=== PATIENT | female | born 1940 | race Caucasian/White ===

== ENCOUNTER 2022-10-12 14:44 | Observation (INO) | payer MEDICARE, SELFPAY ==
[2022-10-12] VITALS (34 sets, daily range): BP systolic 99–194; BP diastolic 67–125; PULSE 66–100; RESP 14–23; TEMP 36.8; O2SAT 84–100
--- NOTE | ~2022-10-12 | CT_ITS ---
EXAMINATION: CTA chest abdomen pelvis DATE: 10/12/2022 18:46 INDICATION: L back/chest pain, r/o dissect, N/V/D, difABD pain . TECHNIQUE: Computed tomography (CT) of the chest, abdomen, and pelvis was performed with 100 mL Omnip aque-350 intravenous contrast timed to evaluate the aorta. Automated exposure control and iterative r econstruction technique were employed. The dose-length product was 1119.47 mGy-cm. 3-D volume rendere d images were created on a separate workstation. COMPARISON: 03/09/2004, images only. FINDINGS: Thoracic aorta: Maximum transverse diameter of the ascending aorta is 4.6 cm. Maximum diameter at the diaphragmatic hiatus is 2.7 cm. Lung parenchyma and airways: Senescent change. Bibasilar and dependent atelectasis. Thoracic inlet, axillae and chest wall: No thyroid or soft tissue mass. No axillary lymphadenopathy. Mediastinum: No mass or lymphadenopathy. Large sliding-type hiatal hernia. Heart and pericardium: Cardiomegaly. No pericardial effusion. Coronary artery calcifications: Mild. Pleura: No effusion or mass. Thoracic bones: No acute osseous finding in the chest. ABDOMEN/PELVIS: Liver: Hepatomegaly and steatosis Biliary/Gallbladder: Gallbladder is normal. No bile duct dilation. Pancreas: No mass or duct dilation. Spleen: Normal. Adrenals:No mass. Kidneys: No mass, stone, or hydronephrosis. GI tract: Distal esophageal and gastric wall edema. Diffuse colonic wall edema. No small or large bow el dilation. Diverticulosis without diverticulitis. Mesentery/Peritoneum: No ascites, mass, or free air. Retroperitoneum: No mass. Atherosclerotic abdominal aortic and/or arterial calcifications. No signifi cant stenosis of the major aortic branch vessels. IVC filter. Pelvis: Pelvic organs are within normal limits Soft Tissues: Stable lower abdominal venous collaterals. Abdominopelvic bones: No acute osseous finding in the abdomen/pelvis. IMPRESSION: No CT evidence of aortic dissection. Esophagitis/gastritis. Diffuse colitis which may occur with infe ctious, inflammatory, or ischemic etiologies. Otherwise, no acute finding in the chest, abdomen, or p amelia. Chronic and incidental findings are detailed above. Reviewed, dictated and finalized at location K. ING AND BLENDING SUPERVISOR IMPRESSION: No CT evidence of aortic dissection. Esophagitis/gastritis. Diffuse colitis whi ch may occur with infectious, inflammatory, or ischemic etiologies. Otherwise, no acute finding in the chest, abdomen, or pelvis. Chronic and incidental findi ngs are detailed above.
--- NOTE | 2022-10-12 14:56 | ECG_ITS ---
Measurements Intervals [place] Rate: 79 P: 73 AL: 215 QRS: -6 QRSD: 80 T: 12 QT: 362 QTc: 415 Interpretive Statements SINUS RHYTHM WITH FIRST DEGREE AV BLOCK BORDERLINE T WAVE ABNORMALITY- ANTERIOR LEADS BASELINE ARTIFACT- I, III, AVL, V3 BORDERLINE ECG NO PREVIOUS ECG AVAILABLE FOR COMPARISON Electronically Signed On 10-12-2022 15:27:53 QUALITY ASSURANCE LAB TECHNICIAN by Andi Davila D.O.
[2022-10-12 15:18] LABS: Basophils Percent Auto 0.2 % (0.2-1.2); Hematocrit 46.9 % (37.0-47.0); Hemoglobin 15.2 g/dL (12.0-15.0); Immature Granulocyte Absolute 0.03 K/mm3 (0.00-0.031); Immature Granulocyte Percent A 0.3 % (0-0.5); Lymphocytes Absolute Auto 1.15 K/mm3 (0.9-3.2); Lymphocytes Percent Auto 10.5 % (18.3-44.2); Mean Corpuscular HGB Conc 32.4 g/dl (32-36); Mean Corpuscular Hemoglobin 28.2 pg (26-34); Mean Platelet Volume 10.7 fl (7.4-10.4); Monocytes Absolute Auto 0.2 K/mm3 (0.1-0.6); Monocytes Percent Auto 1.9 % (2.6-8.5); Neutrophils Absolute Auto 9.5 K/mm3 (1.3-6.7); Neutrophils Percent Auto 87.1 % (45.5-73.1); Platelet Count Result 274 k/mm3 (150-375); Red Blood Count 5.39 M/mm3 (4.2-5.4)
[2022-10-12 15:25] LABS: Alanine Aminotransferase 35 U/L (6-35); Albumin Level 5.1 g/dL (3.5-5.1); Alkaline Phosphatase 89 U/L (38-126); Anion Gap 12 mmol/L (8-16); Aspartate Amino Transferase 45 U/L (14-36); Bilirubin,Total 0.6 mg/dL (0.2-1.3); Blood Urea Nitrogen 14 mg/dL (7-17); Calcium 10.4 mg/dL (8.4-10.2); Carbon Dioxide 20 mmol/L (22-30); Chloride 102 mmol/L (98-107); Estimated Glomerular Filt Rate > 60; Glucose 225 mg/dL (65-110); Lipase 72 U/L (23-300); Potassium 4.7 mmol/L (3.4-5.0); Sodium 134 mmol/L (137-145)
--- NOTE | 2022-10-12 18:01 | ED.NAVMDI ---
HPI - Nausea/Vomiting/Diarrhea General Chief complaint: Nausea/Vomiting/Diarrhea <SOILA Watts Last Filed: 10/13/22 02:15> Stated complaint: n/v/d <Marta Teresa PA-C - Last Filed: 10/13/22 02:15> Time Seen by Provider: 10/12/22 17:31 <SOILA Watts Last Filed: 10/13/22 02:15> Source: patient <SOILA Watts Last Filed: 10/13/22 02:15> Mode of arrival: EMS <SOILA Watts Last Filed: 10/13/22 02:15> Limitations: no limitations <SOILA Watts Last Filed: 10/13/22 02:15> History of Present Illness HPI Narrative: Patient is an 82-year-old female who presents the ED via EMS with report nausea, vomiting, diarrhea. Patient reports she developed nausea, vomiting, diarrhea around 5:30 AM this morning. She also reported having diffuse pain in her abdomen at that time. She developed pain in her left upper abdomen/lower chest, wrapping around to her left upper back later in the morning. She does feel somewhat short of breath due to the pain. She has not taken anything for the pain. She still feels nauseous currently. Patient denies any fever, rectal bleeding, cough, cold symptoms. Patient is on Eliquis due to history of blood clots. Denies Hx of CAD. <SOILA Watts Last Filed: 10/13/22 02:15> Related Data Home medications: Home Medications Medication Instructions Recorded Confirmed apixaban 5 mg tablet (Eliquis) 5 mg PO BID 10/13/22 10/13/22 dapagliflozin 10 mg tablet 10 mg PO DAILY 10/13/22 10/13/22 ([facility]) lisinopril 10 mg tablet 10 mg PO DAILY 10/13/22 10/13/22 metformin 500 mg tablet,extended 500 mg PO DAILY 10/13/22 10/13/22 release 24 hr metoprolol succinate 50 mg 50 mg PO DAILY 10/13/22 10/13/22 tablet,extended release 24 hr omeprazole 20 mg capsule,delayed 20 mg PO DAILY 10/13/22 10/13/22 release rosuvastatin 10 mg tablet 10 mg PO DAILY 10/13/22 10/13/22 <Marta Teresa PA-C - Last Filed: 10/13/22 02:15> Allergies/Adverse reactions: Allergies Allergy/AdvReac Type Severity Reaction Status Date / Time Sulfa (Sulfonamide Allergy Severe angioedema Verified 10/13/22 01:33 Antibiotics) tramadol Allergy Nausea and Verified 10/13/22 00:10 Vomiting ciprofloxacin [From Cipro] AdvReac Vomiting Verified 10/13/22 01:36 <Marta Teresa PA-C - Last Filed: 10/13/22 02:15> Review of Systems Review of Systems: CONSTITUTIONAL: Denies fever, chills, or sweats. ENT: Denies rhinorrhea, congestion, sore throat. CARDIOVASCULAR: Denies chest pain. RESPIRATORY: Reports shortness of breath. Denies cough. GASTROINTESTINAL: Reports abdominal pain, nausea, vomiting, and diarrhea. Denies rectal bleeding. GENITOURINARY: Denies dysuria or hematuria. MUSCULOSKELETAL: Reports left lower chest pain, radiating to left upper back. 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
[2022-10-12] MEDS: SODIUM CHLORIDE 0.9% IV 1,000 ML 999 ML IV CONT ×2 (18:02→22:52)
[2022-10-12] MEDS: ONDANSETRON INJ 4 MG/2 ML VIAL IV PUSH ×2 (18:04→21:32)
[2022-10-12 18:38] LABS: INR 1.2; Partial Thromboplastin Time 26.5 SECONDS (22.3-36.8); Prothrombin Time 14.8 Seconds (11.1-14.7)
[2022-10-12 18:54] LABS: Troponin I 0.079 ng/mL (0.000-0.034)
[2022-10-12 19:04] LABS: Influenza A QL RT-PCR Negative (Negative); Influenza B QL RT-PCR Negative (Negative); SARS-CoV-2 RNA PCR Negative
[2022-10-12] MEDS: PANTOPRAZOLE SODIUM IV 40 MG VIAL IV PUSH (19:58)
[2022-10-12 20:20] LABS: Appearance Urine Slightly Cloudy (Clear); Bilirubin Urine Negative (Negative); Blood Urine Negative (Negative); Color Urine Yellow (Yellow); Glucose Urine UA 3+ mg/dL (Negative); Ketones Urine 3+ mg/dL (Negative); Leukocyte Esterase Ur Negative LEU/UL (Negative); Nitrate Urine Negative (Negative); Protein Urine Trace mg/dL (Negative); Urobilinogen Urine 0.2 mg/dL (<2.0); pH Urine 5.5 (5.0-9.0)
[2022-10-12 20:25] LABS: Bacteria Urine Trace /hpf; RBC Urine 0-2 /hpf (0-2); Squamous Epithelial Cell Urine Rare /hpf (Few); WBC Urine 0-3 /hpf
[2022-10-12 20:27] LABS: Add Urine Microscopic? YES
[2022-10-12 20:28] LABS: Lactic Acid Reflex 2.6 mmol/L (0.7-2.0)
--- NOTE | 2022-10-12 20:28 | ECG_ITS ---
Measurements Intervals [place] Rate: 88 P: 14 LA: 229 QRS: -14 QRSD: 80 T: 9 QT: 364 QTc: 442 Interpretive Statements SINUS RHYTHM WITH FIRST DEGREE AV BLOCK BORDERLINE ST-T WAVE ABNORMALITY- ANT/INF LEADS ABNORMAL ECG COMPARED TO ECG 10/12/2022 15:00:53 NO SIGNIFICANT CHANGES Electronically Signed On 10-13-2022 8:59:59 PAPERHANGER ASSISTANT by Andi Davila D.O.
[2022-10-12] MEDS: NITROGLYCERIN SL 0.4 MG TABLET SUBLINGUAL ×2 (20:36→21:03)
[2022-10-12] MEDS: MORPHINE SULFATE (*CRX) 4 MG/ML INJ IV PUSH (21:32)
[2022-10-12 22:12] LABS: Troponin I 0.185 ng/mL (0.000-0.034)
--- NOTE | 2022-10-12 22:47 | PC.NURSE ---
pt is unable to maintain standing position at this time.
[2022-10-12 23:17] LABS: Reflex Lactic Acid Yes or No Add Lactic
[2022-10-12 23:45] LABS: Lactic Acid 1.3 mmol/L (0.7-2.0)
[2022-10-13] VITALS (11 sets, daily range): BP systolic 126–157; BP diastolic 74–83; PULSE 64–97; RESP 14–20; TEMP 36.3–36.9; O2SAT 96–100; BMI 28.8
--- NOTE | 2022-10-13 | ECHO_ITS ---
Patient Info Name: Wade Rodriguez Age: 82 years : 1940 Gender: Female Ht: 66 in Wt: 179 lbs BSA: 1.97 m2 HR: 70 bpm BP: 130 / 83 mmHg Heart Rhythm: Sinus Rhythm Technical Quality: Fair Exam Date: 10/13/2022 11:11 AM Exam Location: [facility] Pulmonary Patient Status: Inpatient Admit Date: 10/12/2022 Staff Ordering Physician: Iain Alvarado MD (sarah/delmer) Metal Gauge Maker: Mary Ellen Mcwilliams RDCS Attending Provider: Erasmo Maldonado MD Referring Physician: Christiano COLLINS; Exam Type: CA echo dop color flow w con Study Info Indications - elevated troponin Complete two-dimensional, color flow and Doppler transthoracic echocardiogram is performed with contrast to opacify the left ventricle and to improve the deliniation of the left ventricle endocardial borders. Contrast/Agitated Saline Contrast/Ag. Saline: Definity Amount: 3.00 ml Administered By: Mary Ellen Mcwilliams RDCS Existing IV Access: Yes IV Access Condition: patent with no signs of infiltration Summary 1. Left ventricular systolic function is normal, estimated at 65-70%. 2. The left ventricular diastolic function is grade I diastolic dysfunction. 3. Right ventricular systolic function is normal. 4. There is moderate aortic valve calcification. 5. There is mild to moderate aortic valve stenosis with a peak velocity of 291.14 cm/s, mean gradient of 16 mmHg, and aortic valve area of 1.37 cm2. 6. There is mild to moderate aortic valve regurgitation. 7. There is mild tricuspid valve regurgitation. 8. 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 Left Ventricle Left ventricular chamber dimension is normal. Left ventricular systolic function is normal, estimated at 65-70%. There is no increased left ventricular wall thickness. The left ventricular diastolic function is grade I diastolic dysfunction. Right Ventricle Right ventricular chamber dimension is normal. Right ventricular systolic function is normal. Left Atria Left atrial chamber dimension is normal. Right Atria Right atrial chamber dimension is normal. Atrial Septum Intact interatrial septum visualized by color flow imaging. Aortic Valve The aortic valve is probable trileaflet. There is no aortic valve sclerosis. There is mild to moderate aortic valve stenosis with a peak velocity of 291.14 cm/s, mean gradient of 16 mmHg, and aortic valve area of 1.37 cm2. There is mild to moderate aortic valve regurgitation. There is moderate aortic valve calcification. Pulmonic Valve The pulmonic valve is not well visualized. Mitral Valve The mitral valve has normal leaflets. There is no mitral valve stenosis. There is trace mitral valve regurgitation. Tricuspid Valve The tricuspid valve leaflets are normal. There is no significant tricuspid valve stenosis. There is mild tricuspid valve regurgitation. Pericardium/Pleural There is no pericardial effusion. Inferior Vena Cava Dilated inferior vena cava with <50% collapse upon inspiration consistent with elevated right atrial pressure. 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 Left Ventricular Outflow Tract Name Value Normal LVOT 2D LVOT D
--- NOTE | 2022-10-13 00:03 | PM.IMHP ---
H&P: HPI History of Present Illness Date/Time: 10/13/22 00:03 Chief Complaint: Nausea, vomiting and diarrhea Narrative: 82-year-old female with past medical history of type 2 diabetes mellitus, GERD, essential hypertension, and prior DVT with IVC filter and chronic anticoagulation with Eliquis who presented to the ER from home with nausea, vomiting and diarrhea. Source of information is patient report and past medical records. Patient is a good historian. The patient reports that she woke up around 05:30 with some abdominal cramping, and bloating. She felt as if she needed to have a bowel movement. Shortly thereafter she began having bowel movements that were initially formed and brown but became watery diarrhea. She had 3-4 loose stools. Around 930 in the morning she began having severe nausea with associated vomiting of clear emesis. She developed cold chills and felt as if she was going to . At that same time she developed some left lower chest pain. She did not take any medications for symptoms that she did not think she could tolerate them. She felt so bad that she called EMS. She received Zofran in route to the hospital. She had improvement in her nausea by time she arrived in the hospital. She was still having some upper abdominal pain until she received 4 mg of morphine in the ER. After morphine administration the patient did briefly become hypoxic but this subsequently resolved. She denies any significant recent travel, exposure to contaminated food or water. She has not had any recent ill contacts. Her ate the same food that she did last evening and has not become ill. She did have some antibiotic therapy 68 weeks ago for UTI. She reports that about a week ago she did have some darker urine and is a unusual odor to her urine but the symptoms resolved after about 3 days. She did not receive antibiotics at that time. She denies any dysuria. She has chronic urinary frequency with both urge and stress urinary incontinence. She wears incontinence pads or panty liners all the time. 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 She denies any palpitations, orthopnea or paroxysmal nocturnal dyspnea. She denies any history of snoring. Her weight is been stable. She denies any hematochezia or melena her last colonoscopy was for 5 years ago. She has a history of diverticulosis without history of diverticulitis. She is fully vaccinated against COVID and received her influenza vaccine within the last 6-8 weeks. She reports that her symptoms have improved significantly since receiving IV fluids and nausea medications. She denies any abdominal pain at this time. She is not having any chest pain. In the ER the patient did have minimally elevated troponins that if slightly increased. She has not had any events on telemetry and repeat EKG was negative. She did have some mild leukocytosis and her total protein, calcium and glucose as well as AST were modestly elevated. She had a CT of the abdomen pelvis which demonstrated gastritis, esophagitis and diffuse colitis with broad differential. The patient does admit to having chronic gastritis but only takes omeprazole on occasion as needed. She denies any recent dysphagia. Review of Systems Review of Systems: 12 systems were reviewed with pertinent positives and negatives per HPI. Except as documented in the HPI, all other systems were reviewed and are negative. 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
[2022-10-13] MEDS: HEIGHT/WEIGHT - PLEASE ENTER XX (00:06)
--- NOTE | 2022-10-13 00:25 | PC.NURSE ---
report called to umesh BENAVIDES RN [id number]
--- NOTE | 2022-10-13 00:52 | ADMGEN ---
This patient, Wade Rodriguez, was admitted to IMU Room 212-01 at 0046. Patient/family oriented to hospital policies and general routines including ID bracelet, bed and alarms, visiting hours, pain management, procedures, bathroom and other care routines, personal items, smoking policy, room service/diet, and visiting hours. Information on how to activate the Rapid Response Team has been discussed. Patient/Family are encouraged to report perceived risks to care and to ask questions if they do not understand what they are told or what they should do.
[2022-10-13 01:09] LABS: Troponin I 0.229 ng/mL (0.000-0.034)
[2022-10-13] MEDS: SODIUM CHLORIDE 0.9% IV 1,000 ML 100 ML IV CONT ×2 (02:12→12:17)
[2022-10-13 05:09] LABS: Alanine Aminotransferase 28 U/L (6-35); Albumin Level 4.2 g/dL (3.5-5.1); Alkaline Phosphatase 59 U/L (38-126); Anion Gap 7 mmol/L (8-16); Aspartate Amino Transferase 33 U/L (14-36); Bilirubin,Total 0.5 mg/dL (0.2-1.3); Blood Urea Nitrogen 11 mg/dL (7-17); Carbon Dioxide 23 mmol/L (22-30); Chloride 104 mmol/L (98-107); Estimated CRCL calculation 57 ml/min; Estimated Glomerular Filt Rate > 60; Glucose 157 mg/dL (65-110); Potassium 4.4 mmol/L (3.4-5.0); Sodium 134 mmol/L (137-145)
[2022-10-13 05:19] LABS: Basophils Percent Auto 0.3 % (0.2-1.2); Eosinophils Percent Auto 0.1 % (0-4.4); Hematocrit 39.8 % (37.0-47.0); Hemoglobin 12.9 g/dL (12.0-15.0); Immature Granulocyte Absolute 0.05 K/mm3 (0.00-0.031); Immature Granulocyte Percent A 0.4 % (0-0.5); Lymphocytes Absolute Auto 2.87 K/mm3 (0.9-3.2); Mean Corpuscular HGB Conc 32.4 g/dl (32-36); Mean Corpuscular Hemoglobin 28.7 pg (26-34); Mean Corpuscular Volume 88.6 fl (80-100); Mean Platelet Volume 10.5 fl (7.4-10.4); Monocytes Absolute Auto 0.9 K/mm3 (0.1-0.6); Monocytes Percent Auto 7.3 % (2.6-8.5); Neutrophils Absolute Auto 8.1 K/mm3 (1.3-6.7); Neutrophils Percent Auto 67.9 % (45.5-73.1); Platelet Count Result 244 k/mm3 (150-375); Red Blood Count 4.49 M/mm3 (4.2-5.4); Red Cell Distribution Width 14.1 % (11.5-14.5)
[2022-10-13 05:24] LABS: Troponin I 0.205 ng/mL (0.000-0.034)
[2022-10-13] MEDS: PANTOPRAZOLE SODIUM IV 40 MG VIAL IV PUSH ×2 (08:57→21:30)
--- NOTE | 2022-10-13 10:38 | PM.CNCAR ---
Assessment and Plan Assessment and plan (1) Colitis: Code(s): K52.9 - Noninfective gastroenteritis and colitis, unspecified Status: Acute (2) Esophagitis with gastritis: Code(s): K29.70 - Gastritis, unspecified, without bleeding; K20.90 - Esophagitis, unspecified without bleeding Status: Acute (3) Nausea vomiting and diarrhea: Code(s): R11.2 - Nausea with vomiting, unspecified; R19.7 - Diarrhea, unspecified Status: Acute (4) Elevated troponin: Code(s): R77.8 - Other specified abnormalities of plasma proteins Status: Acute (5) Hx of deep venous thrombosis: Code(s): Z86.718 - Personal history of other venous thrombosis and embolism Status: Acute Plan Mildly elevated and flat troponins in the setting of GI illness. EKG without ischemic changes. No symptoms consistent with ACS or ischemia. At this time, it does not appear to be ACS. Will obtain TTE. If TTE without significant abnormality, then likely no further cardiac inpatient workup. Patient already has a professor of exercise science at [facility] that she can follow-up with after discharge. History of Present Illness History of Present Illness Consult date/time: 10/13/22 10:38 Requesting physician: Marta Teresa PA-C Consult reason: Other (Elevated troponin) Reason For Visit: Colitis, elevated troponin Narrative: Patient is an 82-year-old female with a history of type 2 diabetes, GERD, essential hypertension, and prior DVT with IVC and chronic anticoagulation with Eliquis who presented to the ER with nausea, vomiting, diarrhea and abdominal pain. We are being consulted for elevated troponin. Patient states that yesterday morning she woke up with sudden severe abdominal pain with nausea, vomiting, and then developed chills. Abdominal pain radiated up to her left chest and to her back. Started having diarrhea as well. Patient reports she felt well the night before without any symptoms. Had eaten pizza the night before, which she usually tolerates pizza without issue. Patient currently denies any chest pain. Has not had chest pain recently. Follows with a professor of exercise science at [facility]. Patient reports that she had a stress test back this Spring, and states that it was normal. Patient states her professor of exercise science told her that she has an enlarged aorta, but it is not big enough for intervention at this time and they have just been monitoring it. Workup here shows mild leukocytosis. Troponins were mildly elevated at 0.079 --> 0.185 --> 0.229 --> 0.205. CTA chest/abdomen/pelvis shows esophagitis/gastritis with diffuse colitis. EKG shows sinus rhythm with nonspecific STTW abnormalities. No change on serial EKGs x 2. Patient states she feels much better now since being admitted. Review of Systems Review of Systems: 12-point ROS obtained. Negative, unless stated in HPI. 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
[2022-10-13 11:59] LABS: Glucose Point of Care 160 mg/dl (65-105)
[2022-10-13] MEDS: PERFLUTREN LIPID MICROSPHERES 1.5 ML VIAL DILUTED TO 10 ML TOTAL VOLUME IV PUSH (12:08)
--- NOTE | 2022-10-13 12:08 | IVDEFINITY ---
Prior to administration of IV Definity the patient was educated on the risks and benefits of the imaging enhancing agent including potential adverse side effects. The patient verbalized understanding. Allergies were verified. No exclusion criteria were identified and at least one of the following inclusion criteria were met: 1) physician request, 2) patient technically difficult to image (per the [place] [employer] Echocardi[employer] guidelines of two or more segments not discernable within the apical view), or 3) questionable left ventricular function. ?
[2022-10-13 16:44] LABS: Glucose Point of Care 192 mg/dl (65-105)
--- NOTE | 2022-10-13 17:15 | PC.NURSE ---
This patient, Wade Rodriguez, was transferred to [ 311] on 10/13/22 at 1715. Personal belongings sent with patient. Report given to [JOSE G Carrero @ [phone] ]. Appropriate documentation sent with patient. Delay in transfer d/t patient receiving dinner tray.
--- NOTE | 2022-10-13 17:28 | PC.NURSE ---
patient transferring to room 311 per bed
[2022-10-13 21:55] LABS: Glucose Point of Care 170 mg/dl (65-105)
[2022-10-14] MEDS: SODIUM CHLORIDE 0.9% IV 1,000 ML 100 ML IV CONT (01:15)
--- NOTE | 2022-10-14 04:52 | PC.NURSE ---
Pt having abdominal cramping. Pt was given Ativan, Turner, and Bentyl throughout the shift. Pt has been resting ever since. Pt participated and contributed in plan of care. Pt has no other complaints or requests at this time. Will continue to monitor pt.
--- NOTE | 2022-10-14 05:21 | PC.NURSE ---
Pt has been resting throughout the shift. Pt has been up to the bathroom a few time up with stand by assist. Pt has participated and contributed in plan of care for the shift. Pt reports no pain and has no requests at this time. Will continue to monitor pt.
[2022-10-14 06:00] VITALS: BP 150/114; PULSE 73; RESP 16; TEMP 37.2; O2SAT 99
[2022-10-14 07:37] LABS: Glucose Point of Care 153 mg/dl (65-105)
[2022-10-14 08:18] VITALS: BP 184/100; PULSE 64; RESP 14; TEMP 36.8; O2SAT 98
[2022-10-14] MEDS: PANTOPRAZOLE SODIUM IV 40 MG VIAL IV PUSH (09:19)
--- NOTE | 2022-10-14 09:33 | PM.DS ---
DS: Admitting Diagnosis Discharge Date 10/14/2022 Admitting Diagnosis Colitis DS: Summary Hospital Course Hospital Course: 82-year-old female with past medical history of type 2 diabetes mellitus, GERD, essential hypertension, and prior DVT with IVC filter and chronic anticoagulation with Eliquis who presented to the ER from home with nausea, vomiting and diarrhea.??In the ER the patient did have minimally elevated troponins.? She has not had any events on telemetry and repeat EKG was negative.? She did have some mild leukocytosis and her total protein, calcium and glucose as well as AST were modestly elevated.? She had a CT of the abdomen pelvis which demonstrated gastritis, esophagitis and diffuse colitis with broad differential.? Patient was started on IV Zosyn for colitis. Once her symptoms improved she was started on clear liquid diet and advanced as tolerated. At this time she is tolerating a regular diet. Cardiology was consulted for minimally elevated troponin. Patient is not having any chest pains. Echo was obtained which was essentially unremarkable. At this time patient is clinically stable and is being discharged home Echo: ?1. Left ventricular systolic function is normal, estimated at 65-70%. ? 2. The left ventricular diastolic function is grade I diastolic dysfunction. ? 3. Right ventricular systolic function is normal. ? 4. There is moderate aortic valve calcification. ? 5. There is mild to moderate aortic valve stenosis with a peak velocity of 291.14 cm/s, mean gradient of 16 mmHg, and aortic valve area of 1.37 cm2. ? 6. There is mild to moderate aortic valve regurgitation. ? 7. There is mild tricuspid valve regurgitation. ? 8. 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 Time Spent with Patient Time attestation: Total time spent providing and/or coordinating discharge services: Exam Const: General: comfortable and no acute distress HENMT: Mouth: Yes moist mucous membranes Eyes: General: appearance normal, both eyes and all related structures Sclera: sclerae normal Neck: Neck: supple Resp: Effort & Inspection: normal respiratory effort Auscultation: clear to auscultation bilaterally Cardio: Rate: regular rate Rhythm: regular rhythm Heart sounds: no murmurs GI: GI Palp: Yes Soft to palpation and No Tenderness to palpation present (GI) Auscultation: normal bowel sounds Skin: General skin exam: normal color Neuro: Speech: normal speech Motor exam (neuro): 5/5 motor strength present throughout Extrem: General: normal to inspection Psych: Mental Status: mental status grossly normal Affect: normal affect DS: Data Data Completed and Pending Labs on day of discharge: Labs from last 24 hours 10/14/22 10/13/22 10/13/22 07:24 21:27 16:40 POC Capillary Glucose 153 H 170 H 192 H 10/13/22 11:56 POC Capillary Glucose 160 H Preliminary micro results at discharge 10/12/22 21:30 Blood Culture - Preliminary Blood 10/12/22 21:30 Blood Culture - Preliminary Blood Discharge Plan Discharge Consulting providers: Marta Teresa ; Evita Raya Discharging Clinician: Erasmo Maldonado Anticipated Discharge Date/Time: 10/14/22 09:30 Patient Disposition: Home, Self-Care Activity: may shower Diet: heart healthy Patient Instructions: Antibiotic Form, Apixaban (By mouth) Stand Alone Forms: General Discharge Information Follow-up/Referrals: PHYSICIAN NOT ON STAFF,NONSTAFF [Primary Care Provider] - Discharge Medications: New amoxicillin-pot clavulanate 875-125 mg tablet 1 tablet PO Q12H Qty: 10 0RF Continued metoprolol succinate 50 mg tablet extended release 24 hr 50 mg PO DAILY lisinopril 10 mg tablet 10 mg PO DAILY omeprazole 20 mg capsule,delayed release(DR/EC) 20 mg PO DAILY metformin 500 mg tablet extended release 24 hr 500 mg PO DAILY rosuvastatin 10 mg tablet 10 mg PO DAILY Rx
[2022-10-14 10:44] VITALS: PULSE 70
[2022-10-14] MEDS: lisinopriL 10 MG TABLET PO (10:44)
[2022-10-14] MEDS: METOPROLOL SUCCINATE EXT REL 50 MG TABCR PO (10:44)
== END 2022-10-14 11:00 | disposition home or self-care (01) ==
LOC: ANHED 23:12 → ANHIMU 23:56 → ANH3MEDSUR 10-13 17:43
PROVIDERS: Emergency Medicine; Physician Assistant; Admitting Provider Internal Medicine; Emergency Provider Emergency Medicine; Visit Provider Hospitalist
DX: K29.70 Gastritis, unspecified, without bleeding (principal); K52.9 Noninfective gastroenteritis and colitis, unspecified; E86.0 Dehydration; I10 Essential (primary) hypertension; E78.5 Hyperlipidemia, unspecified; E11.9 Type 2 diabetes mellitus without complications; K20.90 Esophagitis, unspecified without bleeding; K21.9 Gastro-esophageal reflux disease without esophagitis; K44.9 Diaphragmatic hernia without obstruction or gangrene; K57.30 Diverticulosis of large intestine without perforation or abscess without bleeding; M81.0 Age-related osteoporosis without current pathological fracture; N39.46 Mixed incontinence; R35.0 Frequency of micturition; R77.8 Other specified abnormalities of plasma proteins; Z79.01 Long term (current) use of anticoagulants; Z86.718 Personal history of other venous thrombosis and embolism; Z20.822 Contact with and (suspected) exposure to COVID-19
CPT/HCPCS: 36415; 71275; 74174; 80053; 81001; 82948; 83605; 83690; 84484; 85025; 85610; 85730; 87040; 87636; 93005; 96361; 96365; 96366; 96367; 96375; 96376; 99285; A9270; C8929; C9113; G0378; J0131; J2270; J2405; J2543; J7030; Q9957; Q9967

== ENCOUNTER 2023-10-09 15:22 | Emergency (ER) | payer MEDICARE, SELFPAY ==
[2023-10-09] VITALS (31 sets, daily range): BP systolic 128–233; BP diastolic 66–111; PULSE 61–80; RESP 11–25; TEMP 36.7; O2SAT 87–100
--- NOTE | ~2023-10-09 | XR_ITS ---
EXAMINATION: XR chest 2V Exam Date/Time: 10/09/2023 17:00 DAIRY EQUIPMENT MECHANIC HISTORY: cp/sob Comparison: 03/03/2005. RESULT: Lines, tubes, and devices: None. Lungs and pleura: Senescent change. Cardiomediastinal silhouette: Increased ectasia and dilation of the thoracic aorta. Somewhat irregul ar appearing aortic knob. Cardiomegaly. Prominent pericardial fat pad. Other: No acute osseous or upper abdominal finding. IMPRESSION: Widened mediastinum, with interval changes in the appearance of the thoracic aorta. Please refer to t he report on the concurrent CTA chest abdomen and pelvis for further details. Reviewed, dictated and finalized at location [facility]. Y EQUIPMENT MECHANIC IMPRESSION: Widened mediastinum, with interval changes in the appearance of the thoracic ao rta. Please refer to the report on the concurrent CTA chest abdomen and pelvis for further details.
--- NOTE | ~2023-10-09 | CT_ITS ---
EXAMINATION: CTA chest abdomen pelvis DATE: 10/09/2023 17:11 INDICATION: concern for aortic dissection . TECHNIQUE: Computed tomography (CT) of the chest, abdomen, and pelvis was performed with 100 mL Omnip aque-350 intravenous contrast in the arterial phase. Automated exposure control and iterative reconst ruction technique were employed. The dose-length product was 1547.40 mGy-cm. COMPARISON: 10/12/2022 FINDINGS: CHEST: Thoracic aorta: The ascending thoracic aorta is dilated to 5.2 cm. The posterior arch measures 4.1 cm . The descending thoracic aorta measures 2.6 cm at the diaphragm. Mild arch calcification. Intramural thrombus involving the descending thoracic, arch, and descending thoracic aorta. Thrombus measures u p up to 1 cm in thickness in the descending aorta. Focal areas of thrombus fissuring noted in the liam cending thoracic aorta (axial image [id number]). Small-volume ill-defined stranding about the arch. Lung parenchyma and airways: Senescent changes. Dependent atelectasis.. Thoracic inlet, axillae and chest wall: No thyroid or soft tissue mass. No axillary lymphadenopathy. Mediastinum: No mass or lymphadenopathy. Heart and pericardium: Cardiomegaly. No pericardial effusion. Coronary artery calcifications: Mild. Pleura: No effusion or mass. Thoracic bones: No acute osseous finding in the chest. ABDOMEN/PELVIS: Liver: Normal. Biliary/Gallbladder: Gallbladder is normal. No bile duct dilation. Pancreas: Pancreatic atrophy Spleen: Normal. Adrenals:No mass. Kidneys: No suspicious mass, obstructing stone, or hydronephrosis. GI tract: Moderate hiatal hernia. No small or large bowel dilation. Appendix not confidently visualiz ed. Diverticulosis without diverticulitis. Mesentery/Peritoneum: No ascites, mass, or free air. Retroperitoneum: No mass. IVC filter. Pelvis: Pelvic organs are within normal limits Soft Tissues: Lower abdominal collaterals. Abdominopelvic bones: No acute osseous finding in the abdomen/pelvis. IMPRESSION: Thoracic aortic aneurysm involving the ascending thoracic aorta and arch, measuring up to 5.2 cm, lar evens than the prior study. Findings concerning for current small volume rupture at the posterior arch including ill-defined alyx aortic fluid/inflammation and thrombus fissuring. Extensive intramural thrombus involving the entirety of the thoracic aorta, also new. Results reported telephonically to Dr. Bennett by Dr. Mills at 5:37 PM on 10/09/2023. Reviewed, dictated and finalized at location [facility]. NG CASER IMPRESSION: Thoracic aortic aneurysm involving the ascending thoracic aorta and arch, measu ring up to 5.2 cm, larger than the prior study. Findings concerning for current small volume rupture at the posterior arch incl uding ill-defined periaortic fluid/inflammation and thrombus fissuring. Extensive intramural thrombus involving the entirety of the thoracic aorta, als o new. Results reported telephonically to Dr. Bennett by Dr. Mills at 5:37 PM on 10/09.
--- NOTE | 2023-10-09 15:39 | ECG_ITS ---
Measurements Intervals [place] Rate: 71 P: -30 CA: 171 QRS: -17 QRSD: 81 T: 14 QT: 393 QTc: 429 Interpretive Statements SINUS RHYTHM BORDERLINE ST-T WAVE ABNORMALITY- ANT/INF LEADS BASELINE ARTIFACT- I, III, AVL, AVF, V2-V4 BORDERLINE ECG COMPARED TO ECG 10/12/2022 20:40:30 NO SIGNIFICANT CHANGES Electronically Signed On 10-09-2023 16:54:00 PLODDING OPERATOR by Andi Davila D.O.
--- NOTE | 2023-10-09 16:11 | ED.CHESTPAIN ---
HPI - Chest Pain General Chief Complaint: Chest Pain Stated Complaint: CHEST PAIN Time Seen by Provider: 10/09/23 15:44 Source: patient Limitations: no limitations History of Present Illness HPI narrative: This is an 83 year old female who presents with acute onset chest pain and shortness of breath that started while watching a football game. Patient states the pain is on the right side of her chest and radiating to her back. Sees hogshead opener Dr Akbar/Wiliam at [facility] and PCP is through [facility]. History of DVT in left leg for which she is on Elliquis. States her first DVT occurred when she was 33 years old in the setting of being on control. She frequently experiences right sided facial twitching on examination; states this is chronic since having [place] Palsy. Patient is in significant amount of pain. Not diaphoretic but appears uncomfortable even after application of nitro paste by EMS. Later patient states she is aware she had an aneurysm but has not seen a cardiothoracic surgeon. Family history (father) of thoracic aneurysm. Related Data Home Medications Medication Instructions Recorded Confirmed apixaban 5 mg tablet (Eliquis) 5 mg PO BID 10/13/22 10/13/22 dapagliflozin propanediol 10 mg 10 mg PO DAILY 10/13/22 10/13/22 tablet (Farxiga) lisinopril 10 mg tablet 10 mg PO DAILY 10/13/22 10/13/22 metformin 500 mg tablet,extended 500 mg PO DAILY 10/13/22 10/13/22 release 24 hr metoprolol succinate 50 mg 50 mg PO DAILY 10/13/22 10/13/22 tablet,extended release 24 hr omeprazole 20 mg capsule,delayed 20 mg PO DAILY 10/13/22 10/13/22 release rosuvastatin 10 mg tablet 10 mg PO DAILY 10/13/22 10/13/22 Allergies Allergy/AdvReac Type Severity Reaction Status Date / Time Sulfa (Sulfonamide Allergy Severe angioedema Verified 10/09/23 15:29 Antibiotics) ciprofloxacin [From Cipro] AdvReac Vomiting Verified 10/09/23 15:29 tramadol AdvReac Nausea and Verified 10/09/23 16:27 Vomiting PMFSH Past Medical History Medical History (Updated 10/10/23 @ 00:45 by Betty Bennett MD) Dyslipidemia Essential hypertension Gastritis GERD (gastroesophageal reflux disease) Hiatal hernia Hx of deep venous thrombosis 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 She is a retired [employer] attention. She has 1 daughter. She is a lifelong nonsmoker and does not drink alcohol or use illicit substances. Code status: DNR/DNI per patient request Surrogate decision maker: Smoking status: Never smoker Alcohol intake: never Substance use: never Substance use type: does not use Lack of Transportation: No Lack of Food: Never True Current Housing: I Have Housing Concerned About Future Housing: No Difficulty Paying Gas/Electric Bills: No Difficulty Paying for Meds: No Currently Unemployed: No Education: Bachelor's Degree Difficulty w/ Childcare or Family Care: No Spiritual care concerns: No Exam Narrative: GENERAL: well-nourisehd, in acute distress. Appears uncomfortable HEAD: Normocephalic, atraumatic. EYES: Occasional right eye
[2023-10-09 16:19] LABS: Basophils Percent Auto 0.4 % (0.2-1.2); Eosinophils Absolute Auto 0.4 K/mm3 (0-0.3); Eosinophils Percent Auto 3.8 % (0-4.4); Hematocrit 41.6 % (37.0-47.0); Hemoglobin 13.6 g/dL (12.0-15.0); Immature Granulocyte Absolute 0.03 K/mm3 (0.00-0.031); Immature Granulocyte Percent A 0.3 % (0-0.5); Lymphocytes Absolute Auto 2.44 K/mm3 (0.9-3.2); Lymphocytes Percent Auto 26.8 % (18.3-44.2); Mean Corpuscular HGB Conc 32.7 g/dl (32-36); Mean Corpuscular Hemoglobin 29.2 pg (26-34); Mean Corpuscular Volume 89.5 fl (80-100); Mean Platelet Volume 10.5 fl (7.4-10.4); Monocytes Absolute Auto 0.7 K/mm3 (0.1-0.6); Monocytes Percent Auto 7.8 % (2.6-8.5); Neutrophils Absolute Auto 5.6 K/mm3 (1.3-6.7); Neutrophils Percent Auto 60.9 % (45.5-73.1); Platelet Count Result 234 k/mm3 (150-375); Red Blood Count 4.65 M/mm3 (4.2-5.4); Red Cell Distribution Width 13.4 % (11.5-14.5); White Blood Count 9.1 K/mm3 (4.5-10.0)
[2023-10-09] MEDS: ONDANSETRON INJ 4 MG/2 ML VIAL IV PUSH (16:21)
[2023-10-09] MEDS: MORPHINE SULFATE (*CRX) 4 MG/ML INJ IV PUSH (16:22)
[2023-10-09 16:28] LABS: Alanine Aminotransferase 28 U/L (6-35); Albumin Level 4.6 g/dL (3.5-5.1); Alkaline Phosphatase 69 U/L (38-126); Anion Gap 14 mmol/L (8-16); Aspartate Amino Transferase 36 U/L (14-36); Bilirubin,Total 0.6 mg/dL (0.2-1.3); Blood Urea Nitrogen 15 mg/dL (7-17); Calcium 9.9 mg/dL (8.4-10.2); Carbon Dioxide 21 mmol/L (22-30); Chloride 101 mmol/L (98-107); Estimated CRCL calculation 69 ml/min; Estimated Glomerular Filt Rate > 60; Glucose 185 mg/dL (65-110); Lipase 74 U/L (23-300); Potassium 4.3 mmol/L (3.4-5.0); Sodium 136 mmol/L (137-145)
[2023-10-09 16:30] LABS: Partial Thromboplastin Time 24.2 SECONDS (22.3-36.8); Prothrombin Time 14.1 Seconds (11.1-14.7)
[2023-10-09 16:39] LABS: Troponin I < 0.012 ng/mL (0.000-0.034)
[2023-10-09] MEDS: ESMOLOL HCL 2,500 MG/250 ML 2,500 MG/250 ML BAG 27.3 MG IV CONT (18:25)
[2023-10-09] MEDS: niCARdipine 20 MG/200 ML 20 MG/200 ML BAG 50 MG IV CONT (18:29)
[2023-10-09 18:40] LABS: Troponin I < 0.012 ng/mL (0.000-0.034)
--- NOTE | 2023-10-09 20:10 | PC.NURSE ---
flight crew arrived; report and paperwork given to RN/Medic.
== END 2023-10-09 20:39 | disposition short-term general hospital (02) ==
LOC: ANHED 16:00
PROVIDERS: Emergency Provider Student in an Organized Health Care Education/Training Program
DX: I71.11 Aneurysm of the ascending aorta, ruptured (principal); I71.12 Aneurysm of the aortic arch, ruptured; I10 Essential (primary) hypertension; E11.9 Type 2 diabetes mellitus without complications; E78.5 Hyperlipidemia, unspecified; K21.9 Gastro-esophageal reflux disease without esophagitis; K44.9 Diaphragmatic hernia without obstruction or gangrene; M81.0 Age-related osteoporosis without current pathological fracture; Z66 Do not resuscitate; Z86.73 Personal history of transient ischemic attack (TIA), and cerebral infarction without residual deficits; Z79.01 Long term (current) use of anticoagulants; Z79.84 Long term (current) use of oral hypoglycemic drugs; Z98.42 Cataract extraction status, left eye; Z98.41 Cataract extraction status, right eye; I74.11 Embolism and thrombosis of thoracic aorta; R94.31 Abnormal electrocardiogram [ECG] [EKG]
CPT/HCPCS: 36415; 71046; 71275; 74174; 80053; 83690; 84484; 85025; 85610; 85730; 86850; 86900; 86901; 93005; 96365; 96366; 96367; 96375; 99291; J2270; J2405; Q9967

== ENCOUNTER 2024-06-23 13:55 | Emergency (ER) | payer MEDICARE, SELFPAY ==
--- NOTE | ~2024-06-23 | CT_ITS ---
EXAMINATION: CTA chest DATE: 06/23/2024 16:15 INDICATION: Chest pain. History of aortic aneurysm. TECHNIQUE: Computed tomography (CT) of the chest was performed with 100 CC Omnipaque 350 intravenous contrast. Automated exposure control and iterative reconstruction technique were employed. Exam dose: 421.33 mGy-cm total exam DLP. COMPARISON: 10/09/2023 CTA chest abdomen pelvis FINDINGS: The ascending aorta measures up to 4.3 cm diameter, the mid aortic arch 3.2 cm, the descend ing thoracic aorta 2.8 cm. There is evidence chronic calcification but normal caliber of the suprarenal abdominal aorta. There i s very prominent calcification at the origin of the left renal artery. No thoracic aortic or proximal aortic dissection. Cardiomegaly. Coronary artery calcification. No pericardial or pleural effusion. No hilar or mediastinal mass lesion or lymphadenopathy. No pulmonary infiltrate or consolidation or suspicious pulmonary mass lesion is evident. Moderately large sliding hiatal hernia. There is thickening of the wall of the included splenic flexure of the colon with pericolic fat stran ding and thickening of the adjacent anterior pararenal and lateral conal fascia, consistent with coli tis. Morphology of the adrenal glands. Included upper abdominal structures are otherwise unremarkable. IMPRESSION: Thoracic descending aortic aneurysm measures up to 4.3 cm diameter; resolution of periao rtic soft tissue thickening or hematoma since 10/09/2023 Cardiomegaly, coronary artery calcification Thickening of the wall of the included splenic flexure the colon with pericolic fat stranding in patricia cent fascial thickening, consistent with colitis Reviewed, dictated and finalized at [facility]. Reviewed, dictated and finalized at location [facility]. IMPRESSION: Thoracic descending aortic aneurysm measures up to 4.3 cm diameter ; resolution of periaortic soft tissue thickening or hematoma since 10/09/2023 Cardiomegaly, coronary artery calcification Thickening of the wall of the included splenic flexure the colon with pericolic fat stranding in adjacent fascial thickening, consistent with colitis
[2024-06-23 13:59] VITALS: BP 106/74; PULSE 73; RESP 18; TEMP 37.1; O2SAT 98
--- NOTE | 2024-06-23 14:38 | ECG_ITS ---
Test Date: 2024-06-23 15:16:03 Measurements Intervals [place] Rate: 76 P: -3 VA: 213 QRS: -18 QRSD: 85 T: -13 QT: 397 QTc: 447 Interpretive Statements SINUS RHYTHM WITH FIRST DEGREE AV BLOCK LOW QRS VOLTAGE POOR R-WAVE PROGRESSION ABNORMAL ECG No previous ECG available for comparison Electronically Signed On 06-24-2024 08:54:30 CDT by Ugo Thompson M.D.
--- NOTE | 2024-06-23 14:39 | ED.NAVMDI ---
HPI - Nausea/Vomiting/Diarrhea General Chief complaint: Nausea/Vomiting/Diarrhea Stated complaint: n/v, chest pain Time Seen by Provider: 06/23/24 14:06 History of Present Illness HPI Narrative: Patient is an 84-year-old female with a history of aortic aneurysm, hypertension, DVT on Eliquis presenting with chest pain. Patient states that she woke this morning with nausea and vomiting. She then developed left-sided chest pain that went into her epigastrium. It went away but then it came back so she called EMS. States that the pain has completely resolved at this time. No significant shortness of breath or lightheadedness. No numbness or weakness. States that she was worried given her history of the aortic aneurysm. States that she was at [place] last year for it and chose not to have surgery. Related Data Home Medications Medication Instructions Recorded Confirmed apixaban 5 mg tablet (Eliquis) 5 mg PO BID 10/13/22 10/13/22 dapagliflozin propanediol 10 mg 10 mg PO DAILY 10/13/22 10/13/22 tablet (Farxiga) lisinopril 10 mg tablet 10 mg PO DAILY 10/13/22 10/13/22 metformin 500 mg tablet,extended 500 mg PO DAILY 10/13/22 10/13/22 release 24 hr metoprolol succinate 50 mg 50 mg PO DAILY 10/13/22 10/13/22 tablet,extended release 24 hr omeprazole 20 mg capsule,delayed 20 mg PO DAILY 10/13/22 10/13/22 release rosuvastatin 10 mg tablet 10 mg PO DAILY 10/13/22 10/13/22 Allergies Allergy/AdvReac Type Severity Reaction Status Date / Time Sulfa (Sulfonamide Allergy Severe angioedema Verified 10/09/23 15:29 Antibiotics) ciprofloxacin [From Cipro] AdvReac Vomiting Verified 10/09/23 15:29 tramadol AdvReac Nausea and Verified 10/09/23 16:27 Vomiting Review of Systems Review of Systems: All systems reviewed & are unremarkable except as noted in HPI and below PMFSH Past Medical History Medical History Dyslipidemia Essential hypertension Gastritis GERD (gastroesophageal reflux disease) Hiatal hernia Hx of deep venous thrombosis 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 She is a retired [employer] attention. She has 1 daughter. She is a lifelong nonsmoker and does not drink alcohol or use illicit substances. Code status: DNR/DNI per patient request Surrogate decision maker: Smoking status: Never smoker Alcohol intake: never Substance use: never Substance use type: does not use Lack of Transportation: No Lack of Food: Never True Current Housing: I Have Housing Concerned About Future Housing: No Difficulty Paying Gas/Electric Bills: No Difficulty Paying for Meds: No Currently Unemployed: No Education: Bachelor's Degree Difficulty w/ Childcare or Family Care: No Spiritual care concerns: No Exam Narrative: GENERAL: Nontoxic, no acute distress, pleasant cooperative HEAD: Normocephalic, atraumatic. EYES: PERRLA and EOMI. ENT: Mucous membranes moist. NECK: Supple. CHEST: Clear to auscultation. No respiratory distress. HEART: Regular rate and rhythm. No mu
[2024-06-23 15:10] LABS: Basophils Percent Auto 0.2 % (0.2-1.2); Eosinophils Percent Auto 0.1 % (0-4.4); Hemoglobin 12.8 g/dL (12.0-15.0); Immature Granulocyte Absolute 0.07 K/mm3 (0.00-0.031); Immature Granulocyte Percent A 0.5 % (0-0.5); Lymphocytes Percent Auto 10.2 % (18.3-44.2); Mean Corpuscular HGB Conc 34.6 g/dl (32-36); Mean Corpuscular Hemoglobin 30.5 pg (26-34); Mean Corpuscular Volume 88.3 fl (80-100); Monocytes Absolute Auto 1.1 K/mm3 (0.1-0.6); Monocytes Percent Auto 7.1 % (2.6-8.5); Neutrophils Percent Auto 81.9 % (45.5-73.1); Platelet Count Result 282 k/mm3 (150-375); Red Blood Count 4.19 M/mm3 (4.2-5.4); Red Cell Distribution Width 13.6 % (11.5-14.5); White Blood Count 14.7 K/mm3 (4.5-10.0)
[2024-06-23 15:23] LABS: Alanine Aminotransferase 35 U/L (6-35); Albumin Level 4.4 g/dL (3.5-5.1); Alkaline Phosphatase 109 U/L (38-126); Anion Gap 12 mmol/L (4-12); Aspartate Amino Transferase 42 U/L (14-36); Bilirubin,Total 1.1 mg/dL (0.2-1.3); Blood Urea Nitrogen 12 mg/dL (7-17); Calcium 9.5 mg/dL (8.4-10.2); Carbon Dioxide 21 mmol/L (22-30); Chloride 100 mmol/L (98-107); Estimated CRCL calculation 72 ml/min; Estimated Glomerular Filt Rate > 60; Glucose 178 mg/dL (65-110); Lipase 58 U/L (23-300); Magnesium 1.2 mg/dL (1.6-2.3); Sodium 133 mmol/L (137-145)
[2024-06-23 15:29] LABS: INR 1.4; Prothrombin Time 17.4 Seconds (11.1-14.7)
[2024-06-23 15:30] LABS: Partial Thromboplastin Time 33.4 Seconds (22.3-36.8)
[2024-06-23 15:34] LABS: Troponin I < 0.012 ng/mL (0.000-0.034)
[2024-06-23 16:00] VITALS: BP 108/69; PULSE 74; RESP 17; TEMP 36.6; O2SAT 95
[2024-06-23 18:12] VITALS: BP 112/82; PULSE 69; RESP 17; O2SAT 97
--- NOTE | 2024-06-23 18:12 | ECG_ITS ---
Test Date: 2024-06-23 18:12:56 Measurements Intervals [place] Rate: 67 P: 7 MI: 231 QRS: -12 QRSD: 86 T: 3 QT: 416 QTc: 442 Interpretive Statements SINUS RHYTHM WITH MARKED SINUS ARRHYTHMIA WITH FIRST DEGREE AV BLOCK LOW QRS VOLTAGE POOR R-WAVE PROGRESSION ABNORMAL ECG Compared to ECG 06/23/2024 15:16:03 NO DIFFERENCE Electronically Signed On 06-24-2024 09:01:38 CDT by Ugo Thompson M.D.
[2024-06-23] MEDS: MAGNESIUM OXIDE 400 MG TABLET PO (18:30)
[2024-06-23] MEDS: AMOXICILLIN/CLAVULANATE K 875-125 MG TAB 1 TABLET PO (18:30)
[2024-06-23 18:43] LABS: Troponin I < 0.012 ng/mL (0.000-0.034)
[2024-06-23 19:28] VITALS: BP 109/71; PULSE 69; RESP 17; TEMP 37.1; O2SAT 99
[2024-06-23 19:52] VITALS: BP 137/72; PULSE 78; RESP 18; TEMP 36.6; O2SAT 98
== END 2024-06-23 19:58 | disposition home or self-care (01) ==
PROVIDERS: Emergency Provider Emergency Medicine
DX: K52.9 Noninfective gastroenteritis and colitis, unspecified (principal); E83.42 Hypomagnesemia; I71.13 Aneurysm of the descending thoracic aorta, ruptured; I10 Essential (primary) hypertension; E11.9 Type 2 diabetes mellitus without complications; E78.5 Hyperlipidemia, unspecified; K21.9 Gastro-esophageal reflux disease without esophagitis; K44.9 Diaphragmatic hernia without obstruction or gangrene; M81.0 Age-related osteoporosis without current pathological fracture; Z86.718 Personal history of other venous thrombosis and embolism; Z96.1 Presence of intraocular lens; Z98.42 Cataract extraction status, left eye; Z98.41 Cataract extraction status, right eye; Z79.01 Long term (current) use of anticoagulants; Z79.84 Long term (current) use of oral hypoglycemic drugs; Z79.899 Other long term (current) drug therapy; I44.0 Atrioventricular block, first degree; R94.31 Abnormal electrocardiogram [ECG] [EKG]; I51.7 Cardiomegaly
CPT/HCPCS: 36415; 71275; 80053; 83690; 83735; 84484; 85025; 85610; 85730; 93005; 99284; A9270; Q9967